=== PATIENT | male | born 1935 | race Caucasian/White ===

== ENCOUNTER 2022-11-30 14:53 | Inpatient (IN) | payer OTHER, MEDICARE ==
[~2022-11-30] VITALS: Ht 188 cm; Wt 90.7 kg
[2022-11-30] MEDS ORDERED: iohexoL 350 mgI/mL, 100 ML INFUS..BTL IV ONE (15:00)
--- NOTE | 2022-11-30 15:02 | NUR ---
PATIENT CAT [facility] GAVE REPORT. PATIENT 87 YO MALE WITH HISTORY HYPERTENSION, HYPOTHYROIDISM. NO KNOWN ALLERGIES. TAKES MEDICATION METOPROLOL, AMLODIPINE, LORASTAN, ALLOPURINOL, LEVOTHYROXINE. PATIENT FOUND IN [facility] IN [place] WITH FWW WHO WAS NOTED ON GROUND. AMBULANCE CAME AND ASSESSED PATIENT HAVING MILD STROKELIKE SYMPTOMS, WEAKNESS, FACIAL DROOP, PUPILS: PERRLA, ALERT AND ORIENTED X3. RIGHT LEG WEAKNESS NOTED BY AMBULANCE. DENIES PAIN. ENDORSED TO OLIVE OSORIO FOR CONTINUITY OF CARE. PATIENT TAKEN TO CT SCAN.
--- NOTE | 2022-11-30 15:25 | NUR ---
RECEIVED PT FROM BETTIE SCHAEFER. ASSUMED CARE. PT BACK FROM CT SCAN AND PLACED ON MONITOR.
--- NOTE | 2022-11-30 15:30 | NUR ---
NEURO-TELE CONFERENCE WITH PT TAKING PLACE AT THIS TIME.
--- NOTE | 2022-11-30 15:35 | NUR ---
BLOOD OBTAINED AND TAKEN TO LAB, EKG COMPLETED, BS 117
[2022-11-30 15:53] LABS: BASOPHILS # (AUTO) 0.1 K/uL (0.0-0.2); BASOPHILS % (AUTO) 0.6 % (0.0-2.0); EOSINOPHILS # (AUTO) 0.1 K/uL (0.0-0.4); HEMOGLOBIN 13.4 g/dL (14.0-18.0); LYMPHOCYTES # (AUTO) 2.3 K/uL (1.0-5.5); LYMPHOCYTES % (AUTO) 20.1 % (20.5-51.5); MEAN CORPUSCULAR HEMOGLOBIN 33 pg (27-31); MEAN CORPUSCULAR HGB CONC 34 % (32-36); MEAN CORPUSCULAR VOLUME 98 fL (79.0-98.0); MONOCYTES # (AUTO) 1.2 K/uL (0.0-1.0); MONOCYTES % (AUTO) 10.6 % (1.7-9.3); NEUTROPHILS # (AUTO) 7.6 K/uL (1.8-7.7); NEUTROPHILS % (AUTO) 67.7 % (40.0-70.0); PLATELET COUNT (AUTO) 176 K/uL (130-430); RED BLOOD CELL COUNT(AUTO) 4.09 MIL/uL (4.2-6.2); RED CELL DISTRIBUTION WIDTH 15.6 % (9.0-15.0); WHITE BLOOD COUNT (AUTO) 11.2 K/uL (4.8-10.8)
[2022-11-30 16:00] LABS: ALANINE AMINOTRANSFERASE 19 U/L (12-78); ALBUMIN 3.3 g/dL (3.4-4.8); ANION GAP 12 (5-15); ASPARTATE AMINOTRANSFERASE 16 U/L (10-37); CALCIUM 8.7 mg/dL (8.4-11.0); CHLORIDE 103 mmol/L (98-107); CREATININE 1.75 mg/dL (0.55-1.30); GLUCOSE 118 mg/dL (70-99); TOTAL BILIRUBIN 0.4 mg/dL (0.0-1.0); UREA NITROGEN, BLOOD 29 mg/dL (8-21)
[2022-11-30 16:04] LABS: PROTHROMBIN TIME 10.4 SECS (9.5-12.5)
[2022-11-30] MEDS ORDERED: ASPIRIN 325 MG TABLET PO ONE (16:30)
[2022-11-30] MEDS ORDERED: KCL 20 mEq in D5/0.45NS 1000mL 1,000 ML IV ONE (16:45)
--- NOTE | 2022-11-30 16:47 | NUR ---
Admit bed requested Patient will be admitted to care of . Admitted to TELEMETRY unit. Diagnosis POSSIBLE STROKE Inpatient (Yes or No) YES Observation (Yes or No) NO Orientation concerns or request close to nursing station (Yes or No) NO Covid Status PENDING On vent or bipap NO Isolation requirements PENDING Needs a sitter NO From Home (Yes or if No enter name of facility) YES Requires Dialysis (Yes or No) NO Med Rec Completed (Yes of No) YES
--- NOTE | 2022-11-30 16:55 | NUR ---
SWALLOW EVAL COMPLETED, PT TOLERATE SOLIDS AND THIN LIQUIDS WITH NO S/S OF DIFFICULTY. ASPIRIN 325MG PO GIVEN AND TOLERATED WELL.
[2022-11-30] MEDS ORDERED: HYDR25TA4 PO (16:56)
[2022-11-30] MEDS ORDERED: LEVO75CA5 PO (16:56)
[2022-11-30] MEDS ORDERED: METO25TA3 PO (16:56)
[2022-11-30] MEDS ORDERED: LOSA100T4 PO (16:56)
[2022-11-30] MEDS ORDERED: NOR10 PO (16:56)
[2022-11-30] MEDS ORDERED: ALL300 PO (16:56)
[2022-11-30] MEDS ORDERED: PRO20 PO (17:00)
[2022-11-30] MEDS ORDERED: LACO100T2 PO (17:00)
--- NOTE | 2022-11-30 17:52 | NUR ---
SPOKE TO JOANNE DARRYL'S SON AND UPDATED HER ON POC. DR. MOREIRA ALSO SPOKE WITH DAUGHTER.
--- NOTE | 2022-11-30 17:58 | NUR ---
D5 1/2 NS WITH KCL 20MEQ IVF INITIATED.
[2022-11-30 19:03] LABS: CHOLESTEROL 165 mg/dL (<200)
[2022-11-30 19:58] VITALS: BP_SYST 144
--- NOTE | 2022-11-30 20:30 | NUR ---
Patient will be admitted to care of . Admitted to unit. Will go to room 118A. Belongings list completed. Complete and up to date summary report printed. SBAR report to be given at bedside with opportunity for questions.
[2022-11-30 22:34] LABS: CHOLESTEROL 161 mg/dL (<200); HDL CHOLESTEROL 55 mg/dL (>45); TRIGLYCERIDES 102 mg/dL (30-150)
[2022-11-30] MEDS ORDERED: ENOXAPARIN SODIUM 30 MG/0.3 ML SYRINGE SUBCUT ONE (23:00)
[2022-11-30] MEDS ORDERED: LACOSAMIDE 100 MG TABLET PO ONE (23:00)
[2022-12-01 00:08] VITALS: BP_SYST 154
--- NOTE | 2022-12-01 05:53 | NUR ---
CONSULTATION PAGED/CALLED Reason for Consultation: CVA Person Who was Notified: VIA TEXT Consulting Physician: REY Tunnel Mucker Specialty: Ordering Physician: ALBA
[2022-12-01 06:35] LABS: BASOPHILS # (AUTO) 0.1 K/uL (0.0-0.2); BASOPHILS % (AUTO) 0.6 % (0.0-2.0); EOSINOPHILS # (AUTO) 0.1 K/uL (0.0-0.4); EOSINOPHILS % (AUTO) 1.4 % (0.0-4.0); HEMATOCRIT 39.2 % (36-54); HEMOGLOBIN 13.1 g/dL (14.0-18.0); LYMPHOCYTES # (AUTO) 2.6 K/uL (1.0-5.5); LYMPHOCYTES % (AUTO) 25.1 % (20.5-51.5); MEAN CORPUSCULAR HEMOGLOBIN 32 pg (27-31); MEAN CORPUSCULAR HGB CONC 33 % (32-36); MEAN CORPUSCULAR VOLUME 97 fL (79.0-98.0); MONOCYTES # (AUTO) 1.2 K/uL (0.0-1.0); MONOCYTES % (AUTO) 11.6 % (1.7-9.3); NEUTROPHILS # (AUTO) 6.2 K/uL (1.8-7.7); NEUTROPHILS % (AUTO) 61.3 % (40.0-70.0); PLATELET COUNT (AUTO) 167 K/uL (130-430); RED BLOOD CELL COUNT(AUTO) 4.05 MIL/uL (4.2-6.2); RED CELL DISTRIBUTION WIDTH 15.2 % (9.0-15.0); WHITE BLOOD COUNT (AUTO) 10.2 K/uL (4.8-10.8)
[2022-12-01 07:00] LABS: ANION GAP 7 (5-15); CALCIUM 8.6 mg/dL (8.4-11.0); CHLORIDE 106 mmol/L (98-107); CREATININE 1.43 mg/dL (0.55-1.30); GLUCOSE 101 mg/dL (70-99); UREA NITROGEN, BLOOD 20 mg/dL (8-21)
[2022-12-01] MEDS: LEVOTHYROXINE SODIUM 0.075 MG TABLET PO SCH (07:21)
--- NOTE | 2022-12-01 07:31 | NUR ---
OPENING NOTES: RECEIVED BEDSIDE SBAR FROM PM SHIFT NURSE, PATIENT RESTING IN BED WITH EYES CLOSED, NO S/S OF ANY DISTRESS, NON LABOR BREATHING, IV INTACT, CLEAN DRY, CALL LIGHT IN REACH, BED AT LOCKED AND LOW POSITION, ALL SAFETY CHECKS DONE AND WILL DO THOUGHT THE DAY.
[2022-12-01 08:00] VITALS: BP_SYST 148
[2022-12-01 11:49] VITALS: BP_SYST 138
[2022-12-01] MEDS: amLODIPine BESYLATE 10 MG TABLET PO SCH (11:55)
[2022-12-01] MEDS: LOSARTAN POTASSIUM 50 MG TABLET (COZAAR) PO SCH (11:55)
[2022-12-01] MEDS: FLUoxetine HCL 20 MG CAPSULE (PROzac) PO SCH (11:56)
[2022-12-01] MEDS: ALLOPURINOL 300 MG TABLET (ZYLOPRIM) PO SCH (11:56)
[2022-12-01] MEDS: METOPROLOL SUCCINATE 25 MG TAB.SR.24H (TOPROL XL) PO SCH (11:56)
[2022-12-01] MEDS: LACOSAMIDE 100 MG TABLET PO SCH ×2 (11:56→21:43)
[2022-12-01] MEDS: HYDROCHLOROTHIAZIDE 25 MG TABLET (HCTZ) PO SCH (11:57)
[2022-12-01] MEDS: ASPIRIN 81 MG TAB.CHEW PO SCH (11:57)
[2022-12-01] MEDS: KCL 20 mEq in 0.45% NS 1000 mL 1,000 ML IV SCH (15:00)
--- NOTE | 2022-12-01 18:29 | NUR ---
CLOSING NOTES: PATIENT REMAINED STABLE THOUGHT THE DAY, NO S/S OF ANY DISTRESS, NON LABOR BREATHING, RESTING IN BED, ALL SAFETY CHECKS DONE TODAY, BED AT LOW AND LOCKED POSITION, WILL GIVE PM SHIFT NURSE BEDSIDE SBAR.
[2022-12-01 18:31] VITALS: BP_SYST 123
[2022-12-01 20:07] VITALS: BP_SYST 160
[2022-12-01 21:41] VITALS: BP_SYST 145
[2022-12-01] MEDS: ENOXAPARIN SODIUM 30 MG/0.3 ML SYRINGE SUBCUT SCH (21:43)
[2022-12-02 00:15] VITALS: BP_SYST 142
[2022-12-02 06:22] LABS: BASOPHILS % (AUTO) 0.4 % (0.0-2.0); EOSINOPHILS # (AUTO) 0.2 K/uL (0.0-0.4); EOSINOPHILS % (AUTO) 1.8 % (0.0-4.0); HEMATOCRIT 38.7 % (36-54); LYMPHOCYTES # (AUTO) 2.4 K/uL (1.0-5.5); LYMPHOCYTES % (AUTO) 24.2 % (20.5-51.5); MEAN CORPUSCULAR HEMOGLOBIN 33 pg (27-31); MEAN CORPUSCULAR HGB CONC 34 % (32-36); MEAN CORPUSCULAR VOLUME 98 fL (79.0-98.0); MONOCYTES # (AUTO) 1.1 K/uL (0.0-1.0); MONOCYTES % (AUTO) 11.4 % (1.7-9.3); NEUTROPHILS # (AUTO) 6.2 K/uL (1.8-7.7); NEUTROPHILS % (AUTO) 62.2 % (40.0-70.0); PLATELET COUNT (AUTO) 148 K/uL (130-430); RED BLOOD CELL COUNT(AUTO) 3.97 MIL/uL (4.2-6.2); RED CELL DISTRIBUTION WIDTH 15.1 % (9.0-15.0)
[2022-12-02] MEDS: LEVOTHYROXINE SODIUM 0.075 MG TABLET PO SCH (06:48)
[2022-12-02] MEDS: KCL 20 mEq in 0.45% NS 1000 mL 1,000 ML IV SCH ×2 (06:50→16:41)
[2022-12-02 06:54] LABS: ALANINE AMINOTRANSFERASE 19 U/L (12-78); ALBUMIN 2.9 g/dL (3.4-4.8); ANION GAP 9 (5-15); ASPARTATE AMINOTRANSFERASE 18 U/L (10-37); CALCIUM 8.5 mg/dL (8.4-11.0); CHLORIDE 105 mmol/L (98-107); CREATININE 1.44 mg/dL (0.55-1.30); GLUCOSE 90 mg/dL (70-99); TOTAL BILIRUBIN 0.7 mg/dL (0.0-1.0); UREA NITROGEN, BLOOD 21 mg/dL (8-21)
--- NOTE | 2022-12-02 07:30 | NUR ---
Initial notes Received patient awake in bed A/Ox3, respiration even/unlabored no distress, saturation at 96% room air. No signs of slurred speech noted , no c/o numbness to arms/legs, moves bilateral upper and lower extremities w/o deficit. Complain of mild generalizes pain when moving. IV infusing to left forearm patent,. Continue to maintain safety precaution, bed in low position and call light with in reached.
[2022-12-02 08:31] VITALS: BP_SYST 140
[2022-12-02] MEDS: LACOSAMIDE 100 MG TABLET PO SCH ×2 (09:29→21:26)
[2022-12-02] MEDS: ASPIRIN 81 MG TAB.CHEW PO SCH (09:29)
[2022-12-02] MEDS: ALLOPURINOL 300 MG TABLET (ZYLOPRIM) PO SCH (09:30)
[2022-12-02] MEDS: FLUoxetine HCL 20 MG CAPSULE (PROzac) PO SCH (09:30)
[2022-12-02] MEDS: LOSARTAN POTASSIUM 50 MG TABLET (COZAAR) PO SCH (09:31)
[2022-12-02] MEDS: METOPROLOL SUCCINATE 25 MG TAB.SR.24H (TOPROL XL) PO SCH (09:31)
[2022-12-02] MEDS: amLODIPine BESYLATE 10 MG TABLET PO SCH (09:32)
[2022-12-02] MEDS: HYDROCHLOROTHIAZIDE 25 MG TABLET (HCTZ) PO SCH (09:32)
--- NOTE | 2022-12-02 11:13 | NUR ---
Off unit MRI
--- NOTE | 2022-12-02 11:45 | NUR ---
Patient returned back to unit, MRI not done, patient c/o discomfort to requesting pain medication
[2022-12-02 12:00] VITALS: BP_SYST 136
--- NOTE | 2022-12-02 14:35 | NUR ---
Medication given for pain, MRI will take patient for procedure at 1500 pm
[2022-12-02] MEDS ORDERED: HYDROmorphone 2 MG/ML VIAL IVP ONE (14:45)
--- NOTE | 2022-12-02 16:12 | NUR ---
Received telephone call from radiologist Dr. 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 Rausch [place] [address]
[2022-12-02 16:18] VITALS: BP_SYST 141
--- NOTE | 2022-12-02 19:21 | NUR ---
>>>PT NOTES<<< PATIENT WAS TOO DROWSY TO PARTICIPATE WITH PHYSICAL THERAPY EVALUATION, RN IS AWARE. WILL FOLLOW UP TOMORROW, Friday12/03/22.
--- NOTE | 2022-12-02 19:30 | NUR ---
OPENING NOTES Patient resting in bed - no s/s pain or distress noted. Respirations even and unlabored - head of bed elevated. IV site patent no s/s redness, infection, or infiltration. Bed locked and in lowest position. Call light within reach bed alarm on.
[2022-12-02 20:00] VITALS: BP_SYST 152
[2022-12-02] MEDS: ENOXAPARIN SODIUM 30 MG/0.3 ML SYRINGE SUBCUT SCH (21:27)
[2022-12-03] VITALS: BP_SYST 145
--- NOTE | 2022-12-03 06:03 | NUR ---
PAGED DR GILES
[2022-12-03] MEDS: KCL 20 mEq in 0.45% NS 1000 mL 1,000 ML IV SCH (06:36)
[2022-12-03] MEDS: LEVOTHYROXINE SODIUM 0.075 MG TABLET PO SCH (06:44)
--- NOTE | 2022-12-03 07:10 | NUR ---
Initial notes Received patient awake in bed A/Ox3, respiration even/unlabored no distress, oxygen saturation at 96% room air. No signs of slurred speech noted , no c/o numbness to arms/legs, moves bilateral upper and lower extremities w/o deficit. IV infusing to left forearm patent,. Continue to maintain safety precaution, bed in low position and call light with in reached
--- NOTE | 2022-12-03 07:17 | NUR ---
CLOSING NOTES Patient resting in bed - no s/s pain or distress noted. Respirations even and unlabored - head of bed elevated. IV site patent no s/s redness, infection, or infiltration. Bed locked and in lowest position. Call light within reach bed alarm on. Informed Dr. Tobar of MRI results per dayshift's notes: Dr. Read radiologist "MRI shows Acute on Chronic stroke left frontal lobe" [facility]. No new orders.
[2022-12-03 08:05] VITALS: BP_SYST 134
[2022-12-03] MEDS: ALLOPURINOL 300 MG TABLET (ZYLOPRIM) PO SCH (08:41)
[2022-12-03] MEDS: ASPIRIN 81 MG TAB.CHEW PO SCH (08:41)
[2022-12-03] MEDS: FLUoxetine HCL 20 MG CAPSULE (PROzac) PO SCH (08:41)
[2022-12-03] MEDS: LOSARTAN POTASSIUM 50 MG TABLET (COZAAR) PO SCH (08:42)
[2022-12-03] MEDS: METOPROLOL SUCCINATE 25 MG TAB.SR.24H (TOPROL XL) PO SCH (08:43)
[2022-12-03] MEDS: amLODIPine BESYLATE 10 MG TABLET PO SCH (08:43)
[2022-12-03] MEDS: LACOSAMIDE 100 MG TABLET PO SCH ×2 (08:43→20:42)
[2022-12-03] MEDS: HYDROCHLOROTHIAZIDE 25 MG TABLET (HCTZ) PO SCH (08:44)
--- NOTE | 2022-12-03 10:45 | NUR ---
Assisted patent to bathroom via wheelchair, unsteady gait
--- NOTE | 2022-12-03 12:00 | NUR ---
Patient resting in bed, speech garbled during communication, no c/o numbness to arms/legs, moves both upper and lower extremities, maintain safety precaution
[2022-12-03 13:10] VITALS: BP_SYST 137
[2022-12-03 17:17] VITALS: BP_SYST 153
--- NOTE | 2022-12-03 18:29 | NUR ---
Closing Patient resting in bed, reposition every 2 hours,no c/o numbness/tingling to arms/legs, moves bilateral upper and lower extremities w/o deficit. IV infusing to left forearm patent,. Continue to maintain safety precaution throughout shift, all safety secured will endorse.
[2022-12-03 20:00] VITALS: BP_SYST 125
[2022-12-03] MEDS: ENOXAPARIN SODIUM 30 MG/0.3 ML SYRINGE SUBCUT SCH (20:42)
[2022-12-04 01:00] VITALS: BP_SYST 110
[2022-12-04] MEDS: LEVOTHYROXINE SODIUM 0.075 MG TABLET PO SCH (06:13)
[2022-12-04 07:30] VITALS: BP_SYST 147
--- NOTE | 2022-12-04 07:35 | NUR ---
Opening Notes Patient laying in bed, resting when I went to check on him. A/O x 4, Setswana speaking. Patient Breathing even and unlabored on RA. No pain, no distress, no SOB. Patient is on a regular diet maniacal soft . Patient has LH 22g. Patient is bedbound and uses urinal. Bed is locked in lowest position. Call light within reach, all needs met, will continue with plan of care.
[2022-12-04] MEDS ORDERED: ATORVASTATIN 20 MG TABLET PO ONE (09:00)
[2022-12-04] MEDS: ASPIRIN 81 MG TAB.CHEW PO SCH (09:04)
[2022-12-04] MEDS: FLUoxetine HCL 20 MG CAPSULE (PROzac) PO SCH (09:04)
[2022-12-04] MEDS: HYDROCHLOROTHIAZIDE 25 MG TABLET (HCTZ) PO SCH (09:05)
[2022-12-04] MEDS: METOPROLOL SUCCINATE 25 MG TAB.SR.24H (TOPROL XL) PO SCH (09:06)
[2022-12-04] MEDS: amLODIPine BESYLATE 10 MG TABLET PO SCH (09:06)
[2022-12-04] MEDS: ALLOPURINOL 300 MG TABLET (ZYLOPRIM) PO SCH (09:07)
[2022-12-04] MEDS: LACOSAMIDE 100 MG TABLET PO SCH ×2 (09:07→22:05)
[2022-12-04] MEDS: LOSARTAN POTASSIUM 50 MG TABLET (COZAAR) PO SCH (09:08)
[2022-12-04] MEDS: KCL 20 mEq in 0.45% NS 1000 mL 1,000 ML IV SCH (09:26)
[2022-12-04 11:48] VITALS: BP_SYST 11
--- NOTE | 2022-12-04 12:10 | NUR ---
Noon Notes Patient laying in bed, resting while watching a show. Patient Breathing even and unlabored on RA. No pain, no distress, no SOB. Patient is bedbound and uses urinal. Bed is locked in lowest position. Call light within reach, all needs met, will continue with plan of care.
--- NOTE | 2022-12-04 14:05 | NUR ---
CM: Per Otis Coelho/MARIYA: the pt is accepted to room 1105, report # [id number]. Bed is ready now. Addendum: 12/04/22 at 1410 by Rosey Saeed RN Late entry: the referral sent to [facility] by Jack santos this am. I also spoke with Laquita to expedite the eval and requested pt transfer today.
--- NOTE | 2022-12-04 14:24 | NUR ---
IV IV to Left wrist was kinked and so IV was then replaced and moved to Left hand, 22g, patent on infusion pump.
--- NOTE | 2022-12-04 14:28 | NUR ---
PHYSICAL THERAPY CO-SIGN The Physical Therapy Progress Notes documented by Avionics Integration Engineer have been reviewed. Reviewed/Co-Signed by: Helio Zayas Documentation Done by:MARYBEL CARREON Addendum: 12/04/22 at 1428 by Helio Zayas PT Amended: Links added.
--- NOTE | 2022-12-04 15:07 | NUR ---
PT TO BE DISCHARGE TO [facility] B[facility][id number] PHONE#[phone] [facility]ANCE WILL PICK AT 7:30PM PHONE#[phone] PT PACKET GIVEN TO OLIVE PIMENTEL
--- NOTE | 2022-12-04 15:44 | NUR ---
Notes Called and spoke with Debi (daughter in law) and let her know that [facility] tonight around 7:30pm.
--- NOTE | 2022-12-04 15:50 | NUR ---
Otis Dick Called and spoke with OLIVE Rojas and gave full report on patient. Let her know that his estimated time to leave is 1929.
--- NOTE | 2022-12-04 16:00 | NUR ---
Notes Patient laying in bed, resting while watching a tv show. Patient Breathing even and unlabored on RA. No pain, no distress, no SOB. Patient is bedbound and uses urinal. Bed is locked in lowest position. Call light within reach, all needs met, will continue with plan of care.
[2022-12-04 16:09] VITALS: BP_SYST 117
[2022-12-04 17:36] VITALS: BP_SYST 117
--- NOTE | 2022-12-04 19:16 | NUR ---
Closing note Patient laying in bed, resting when I went to check on him. A/O x 2/3, Danish speaking. Patient Breathing even and unlabored on RA. No pain, no distress, no SOB. Patient is on a regular diet maniacal soft . Patient has LH 22g. Patient is bedbound and uses urinal. Bed is locked in lowest position. Call light within reach, all needs met, will endorse to cage shift manager nurse.
--- NOTE | 2022-12-04 20:15 | NUR ---
Pt self removed IV. Pt was told he was going to [facility] for rehab and he said " I need to go to my sons house". I explained to him how important it is for him to further treatment at [facility] in order to feel better. He changed the subject. I called Varsha Simmonsison his sons and she spoke with him on the phone and proceeded to tell him it is ok to go to [facility] with transport. Pt listens and agrees to go. Varsha also verbalized that he didnt have a jacket with him. He continuously was asking about his black jacket with a zipper on it. Pt strapped in on stretcher and left with medical transport.
[2022-12-04] MEDS: ENOXAPARIN SODIUM 30 MG/0.3 ML SYRINGE SUBCUT SCH (22:06)
[2022-12-04 22:08] VITALS: BP_SYST 119
[2022-12-05] MEDS ORDERED: ATORVASTATIN 20 MG TABLET PO SCH (09:00)
== END 2022-12-04 22:30 | DRG 64 ==
LOC: SED 14:53 → STU 16:42
PROVIDERS: ADMIT Family Medicine; ATTEND Family Medicine
DX: I63.512 Cerebral infarction due to unspecified occlusion or stenosis of left middle cerebral artery (principal); N17.0 Acute kidney failure with tubular necrosis; G81.91 Hemiplegia, unspecified affecting right dominant side; I10 Essential (primary) hypertension; E03.9 Hypothyroidism, unspecified; E86.0 Dehydration; R47.81 Slurred speech; R29.810 Facial weakness; M10.9 Gout, unspecified; R29.704 NIHSS score 4; G40.909 Epilepsy, unspecified, not intractable, without status epilepticus; R29.6 Repeated falls; Z20.822 Contact with and (suspected) exposure to COVID-19; F32.A Depression, unspecified; Z79.899 Other long term (current) drug therapy
CPT/HCPCS: 36415; 70450-TC; 70496; 70498; 70551; 71045; 72125-TC; 76376; 80048; 80053; 80061; 82465; 82550; 83037; 83735; 84484; 85025; 85610-TC; 85730-TC; 86886; 86900; 86901; 93005; 96360; 97110-GP; 97116-GP; 97530-GP; 99291; G0378; J1170; J1650; J3480; Q9967

== ENCOUNTER 2022-12-30 13:07 | Emergency (ER) | payer OTHER, MEDICARE ==
[~2022-12-30] VITALS: Ht 188 cm; Wt 90.7 kg
[~2022-12-30 13:07] MED LIST: ALL300 PO; HYDR25TA4 PO; LACO100T2 PO; LEVO75CA5 PO; LOSA100T4 PO; METO25TA3 PO; NOR10 PO; PRO20 PO
[2022-12-30 13:12] VITALS: BP_SYST 110
--- NOTE | 2022-12-30 13:34 | NUR ---
87 yo/m josea from [facility] w c/o having had an episode of gen weakness and feeling faint while trying to have a bowel movement. pt denies any ongoing symptoms. pt denies chest pain, sob, or other symptoms at this time. vss pmh:htn, hypothyroid, dementia, cva (memory deficit) allergies: denies
[2022-12-30 15:05] LABS: BASOPHILS # (AUTO) 0.1 K/uL (0.0-0.2); BASOPHILS % (AUTO) 0.4 % (0.0-2.0); EOSINOPHILS # (AUTO) 0.1 K/uL (0.0-0.4); EOSINOPHILS % (AUTO) 0.8 % (0.0-4.0); HEMATOCRIT 43.5 % (36-54); HEMOGLOBIN 14.3 g/dL (14.0-18.0); LYMPHOCYTES # (AUTO) 2.3 K/uL (1.0-5.5); LYMPHOCYTES % (AUTO) 19.5 % (20.5-51.5); MEAN CORPUSCULAR HEMOGLOBIN 32 pg (27-31); MEAN CORPUSCULAR HGB CONC 33 % (32-36); MEAN CORPUSCULAR VOLUME 96 fL (79.0-98.0); MONOCYTES % (AUTO) 8.2 % (1.7-9.3); NEUTROPHILS # (AUTO) 8.4 K/uL (1.8-7.7); NEUTROPHILS % (AUTO) 71.1 % (40.0-70.0); PLATELET COUNT (AUTO) 214 K/uL (130-430); RED BLOOD CELL COUNT(AUTO) 4.54 MIL/uL (4.2-6.2); RED CELL DISTRIBUTION WIDTH 15.3 % (9.0-15.0); WHITE BLOOD COUNT (AUTO) 11.9 K/uL (4.8-10.8)
--- NOTE | 2022-12-30 15:13 | NUR ---
pt unable to provide urine will try again in a bit
[2022-12-30 15:25] LABS: ANION GAP 11 (5-15); CALCIUM 9.1 mg/dL (8.4-11.0); CHLORIDE 104 mmol/L (98-107); CREATININE 1.56 mg/dL (0.55-1.30); GLUCOSE 117 mg/dL (70-99); UREA NITROGEN, BLOOD 37 mg/dL (8-21)
[2022-12-30 15:31] LABS: ALANINE AMINOTRANSFERASE 97 U/L (12-78); ALBUMIN 3.4 g/dL (3.4-4.8); ASPARTATE AMINOTRANSFERASE 31 U/L (10-37); TOTAL BILIRUBIN 0.6 mg/dL (0.0-1.0)
--- NOTE | 2022-12-30 15:41 | NUR ---
pt to be discharged per ermd sin no need to collect urine anymore.
[2022-12-30 16:30] VITALS: BP_SYST 133
--- NOTE | 2022-12-30 16:30 | NUR ---
Patient given written and verbal discharge instructions and verbalizes understanding with daughter. ER MD discussed with patient the results and treatment provided. Patient in stable condition. ID arm band removed. Opportunity for questions provided and answered.
--- NOTE | 2022-12-30 16:33 | NUR ---
[facility] contacted regarding pt status, informed pt discharged and en route with family to home.
== END 2022-12-30 16:30 | disposition home or self-care (01) ==
LOC: SED 13:07
DX: R55 Syncope and collapse (principal); Z79.899 Other long term (current) drug therapy
CPT/HCPCS: 36415; 71045; 80053; 82962; 83880; 84484; 85025; 93005; 99285